=== PATIENT | female | born 1990 | race Two or more races ===

== ENCOUNTER 2021-05-23 13:01 | Emergency (ER) | payer OTHER ==
[~2021-05-23] VITALS: Ht 157.5 cm; Wt 136.1 kg
[2021-05-23] MEDS ORDERED: ZOLOFT50 MG (13:18)
[2021-05-23] MEDS ORDERED: ADVAIR 100-501 EACH (13:19)
[2021-05-23] MEDS ORDERED: TRAZODONE HCL150 MG (13:20)
[2021-05-23] MEDS ORDERED: DICLOFENAC SODI75 MG PO (19:46)
[2021-05-23] MEDS ORDERED: AMOX-CLAV 875-1 EAC1 PO (19:46)
== END 2021-05-23 19:56 | disposition home or self-care (01) ==
LOC: ER 13:01
DX: J03.00 Acute streptococcal tonsillitis, unspecified (principal); Z20.822 Contact with and (suspected) exposure to COVID-19